=== PATIENT | female | born 1935 | race Caucasian/White ===

== ENCOUNTER 2020-05-13 13:57 | Emergency (ER) | payer SELFPAY ==
--- NOTE | 2020-05-13 15:24 | CT ---
Exam: Head CT without contrast HISTORY: Fall. Pain. COMPARISON: none FINDINGS: Hemorrhage: No intraparenchymal hemorrhage or extra-axial hematoma. Brain parenchyma: Cortical thapa-white matter differentiation is preserved. No mass effect or midline shift. Basilar cisterns are patent.Chronic small vessel ischemic changes of the white matter Ventricular system: Ventricles and sulci are patent and symmetric. Calvarium: Intact Right parietal scalp hematoma, near the vertex. Left vertebral and frontal scalp hematoma. Sinuses and mastoid air cells: Adequate aeration. IMPRESSION: 1. No intracranial posttraumatic sequelae 2. Soft tissue hematomas as described above.
--- NOTE | 2020-05-13 15:28 | CT ---
Exam: CT cervical spine without contrast HISTORY: Trauma. Pain. COMPARISON: None FINDINGS: No craniocervical dissociation. Appropriate alignment of the lateral masses of C1 and C2. Intact odon toid process Appropriate alignment of the facets. Grade 1 anterolisthesis of C3 to upon C3, C3 upon C4, C4 upon C5 and grade 1 retrolisthesis of C5 upo n C6 and C6 upon C7 likely degenerative hypertrophic changes of the facets. Soft tissue neck structures: No mass, lymphadenopathy or hematoma. No prevertebral soft tissue swelli ng. Upper mediastinum and lung apices: Unremarkable Central spinal canal: There are varying degrees of central canal stenosis and foraminal narrowing on the basis of degenerative change. Severe loss of disc space height at C3-C4, C4-C5, C5-C6 and C6-C7. Vertebral bodies: Cervical spine vertebral body height is maintained. No fracture. IMPRESSION: 1. No fracture 2. Varying degrees of central canal stenosis and foraminal narrowing along with spondylolisthesis as detailed above. Findings are presumed to be due to degenerative change.
== END 2020-05-13 14:57 | disposition home or self-care (01) ==
LOC: ERS 13:57
DX: S00.03XA Contusion of scalp, initial encounter (principal); S00.83XA Contusion of other part of head, initial encounter; S80.01XA Contusion of right knee, initial encounter; I10 Essential (primary) hypertension; E78.5 Hyperlipidemia, unspecified; M19.90 Unspecified osteoarthritis, unspecified site; Z79.82 Long term (current) use of aspirin; Z79.899 Other long term (current) drug therapy; W22.8XXA Striking against or struck by other objects, initial encounter
CPT/HCPCS: 70450; 72125